=== PATIENT | female | born 1985 | race Caucasian/White ===

== ENCOUNTER 2019-06-21 21:27 | Emergency (ER) | payer OTHER ==
[~2019-06-21] VITALS: Ht 167.6 cm; Wt 102.8 kg
[~2019-06-21 21:27] MED LIST: CEPH-443 PO; CEPH500C PO; DOCU-144 PO; HYDR-4011 PO; IBUP-1542 PO; TAMS-14 PO
[2019-06-21 21:41] VITALS: Ht 167.6 cm; Wt 102.8 kg
[2019-06-21] MEDS ORDERED: KETOROLAC 30 MG INJ IV STA (22:39)
[2019-06-21] MEDS ORDERED: ONDANSETRON 4 MG INJ IV STA (22:39)
[2019-06-21] MEDS ORDERED: SOD CHLORIDE 0.9% 1,000 ML IV STA (22:39)
[2019-06-22 01:12] VITALS: BP 115/71; PULSE 68; RESP 20
== END 2019-06-22 01:13 | disposition home or self-care (01) ==
LOC: FTE 21:27
DX: N30.00 Acute cystitis without hematuria (principal); R10.2 Pelvic and perineal pain
CPT/HCPCS: 36415; 74176; 80053; 81001; 81025; 83690; 85025; 96374; 96375; 99285; J1885; J2405; J7030